=== PATIENT | female | born 1955 | race Caucasian/White ===

== ENCOUNTER → 2020-05-09 10:01 | Outpatient (CLI) | payer MEDICARE, SELFPAY ==
--- NOTE | ~2020-05-09 | MM_ITS ---
EXAMINATION: MM screening jared BI w koffi HISTORY: Screening mammogram TECHNIQUE: Craniocaudal and mediolateral oblique 3-D tomosynthesis images were obtained and synthetic 2-D images were generated. CAD analysis was submitted and interpreted. COMPARISON: , 09/07/2017, 09/03/2016 bilateral digital screening mammogram examinations BREAST PARENCHYMAL COMPOSITION: There are scattered areas of fibroglandular density. FINDINGS: There is no evidence of suspicious mass, calcification, or architectural distortion to sugg est malignancy in either breast. There has been no suspicious interval change. IMPRESSION: 1. No mammographic evidence of malignancy. 2. Recommend routine screening mammography in one year. BI-RADS Category 1: Negative Reviewed, dictated and finalized at location A.
--- NOTE | ~2020-05-09 | DEXA_ITS ---
Bone Density Report Name: Kiara Guzman Age: 64 Sex: Female Ethnicity: White Date of : 1955 Indication: postmenopausal; screening for osteoporosis; hysterectomy; Referring Provider: ARIANE WILSON Study: Bone densitometry was performed. Exam Date: May 09, 2020 Accession number: [id number] Bone Density: Region BMD T-score Z-score Classification AP Spine (L1-L4) 1.421 3.4 5.2 Normal Femoral Neck (Left) 1.237 3.5 5.0 Normal Total Hip (Left) 1.476 4.4 5.6 Normal Femoral Neck (Right) 1.262 3.7 5.3 Normal Total Hip (Right) 1.422 3.9 5.2 Normal Total Hip Mean 1.449 4.2 5.4 Normal World Health Organization criteria for BMD impression classify patients as: Normal (T-score at or above -1.0), Osteopenia (T-score between -1.0 and -2.5), or Osteoporosis (T-score at or below -2.5). 10-year Fracture Risk: FRAX not reported because: All T-scores for Spine Total, Hip Total, Femoral Neck at or above -1.0 Treated for osteoporosis Clinical Information Provided by Patient: Is being treated for osteoporosis Has used the following medications: HRT (i.e. estrogen/hormone therapy), Vitamin D, Calcium Has the following medical conditions: Hysterectomy Patient maximum height was 66 Menopause Age: 46 No regular weight bearing exercise Drinks caffeinated beverages Onset of menses at age 11 Number of children 2 Impression: The patient has normal bone mass. Discussion: It is important to ask patients whether they are taking their medications and to encourage continued and appropriate compliance with their osteoporosis therapies to reduce fracture risk. It is also important to review their risk factors and encourage appropriate calcium and vitamin D intakes, exercise, fall prevention and other lifestyle measures. Follow-Up: Consider a repeat BMD and Vertebral Fracture Assessment (VFA) exam in 2 years or sooner if medically necessary, to reassess this patient's status. Reported by: [facility] on 05/09/2020 10:30:00 AM. Reviewed, dictated and finalized at location AJamilah CHONG
== END ==
PROVIDERS: PCP Family Medicine Adolescent Medicine; Visit Provider Family Medicine Adolescent Medicine
DX: Z12.31 Encounter for screening mammogram for malignant neoplasm of breast (principal); Z78.0 Asymptomatic menopausal state
CPT/HCPCS: 77063; 77067; 77080

== ENCOUNTER 2020-12-21 07:52 | Emergency (ER) | payer MEDICARE, SELFPAY ==
[2020-12-21] VITALS (18 sets, daily range): BP systolic 130–214; BP diastolic 74–97; PULSE 74–90; RESP 10–20; TEMP 36.7; O2SAT 94–98
--- NOTE | ~2020-12-21 | XR_ITS ---
EXAMINATION: XR chest 2V EXAM DATE: 12/21/2020 08:14 INDICATION: Left-sided chest pain since December 08. History hypertension and asthma. TECHNIQUE: Frontal and lateral projections of the chest obtained and reviewed. There is no prior crystal dy for comparison. FINDINGS: The lungs are clear. There are no pleural effusions. The cardiomediastinal silhouette is within normal limits. There is no pneumothorax suspected. The bones and soft tissues are unremarkab le. IMPRESSION: No acute cardiopulmonary findings. Reviewed, dictated and finalized at location A.
--- NOTE | 2020-12-21 07:57 | ECG_ITS ---
Measurements Intervals [place] Rate: 93 P: 57 KS: 177 QRS: -6 QRSD: 85 T: 45 QT: 330 QTc: 412 Interpretive Statements SINUS RHYTHM POSSIBLE LEFT ATRIAL ENLARGEMENT DELAYED PRECORDIAL R/S TRANSITION BORDERLINE R WAVE PROGRESSION, ANTERIOR LEADS BASELINE WANDER- III, AVF BORDERLINE ECG Electronically Signed On 12-21-2020 11:57:14 CDT by Amish Montague D.O.
[2020-12-21 08:18] LABS: Basophils Percent Auto 0.5 % (0.2-1.2); Eosinophils Absolute Auto 0.2 K/mm3 (0-0.3); Eosinophils Percent Auto 2.5 % (0-4.4); Hematocrit 39.9 % (37.0-47.0); Hemoglobin 13.3 g/dL (12.0-15.0); Immature Granulocyte Absolute 0.03 K/mm3 (0.00-0.031); Immature Granulocyte Percent A 0.4 % (0-0.5); Lymphocytes Absolute Auto 2.66 K/mm3 (0.9-3.2); Lymphocytes Percent Auto 33.9 % (18.3-44.2); Mean Corpuscular HGB Conc 33.3 g/dl (32-36); Mean Corpuscular Hemoglobin 30.3 pg (26-34); Mean Corpuscular Volume 90.9 fl (80-100); Mean Platelet Volume 10.3 fl (7.4-10.4); Monocytes Absolute Auto 0.7 K/mm3 (0.1-0.6); Monocytes Percent Auto 8.9 % (2.6-8.5); Neutrophils Absolute Auto 4.2 K/mm3 (1.3-6.7); Neutrophils Percent Auto 53.8 % (45.5-73.1); Platelet Count Result 270 k/mm3 (150-375); Red Blood Count 4.39 M/mm3 (4.2-5.4); Red Cell Distribution Width 12.4 % (11.5-14.5); White Blood Count 7.9 K/mm3 (4.5-10.0)
[2020-12-21] MEDS: ASPIRIN 81 MG CHEWABLE TABLET 324 MG PO (08:23)
[2020-12-21 08:25] LABS: Anion Gap 8 mmol/L (8-16); Blood Urea Nitrogen 17 mg/dL (7-17); Calcium 9.7 mg/dL (8.4-10.2); Carbon Dioxide 28 mmol/L (22-30); Chloride 100 mmol/L (98-107); Estimated CRCL calculation 78 ml/min; Estimated Glomerular Filt Rate > 60; Glucose 225 mg/dL (65-105); Potassium 4.5 mmol/L (3.4-5.0); Sodium 136 mmol/L (137-145)
[2020-12-21 08:28] LABS: INR 0.9; Prothrombin Time 12.3 Seconds (11.1-14.7)
[2020-12-21 08:37] LABS: Troponin I < 0.012 ng/mL (0.000-0.034)
[2020-12-21 08:49] LABS: Alanine Aminotransferase 15 U/L (4-35); Albumin Level 4.2 g/dL (3.5-5.1); Alkaline Phosphatase 98 U/L (38-126); Aspartate Amino Transferase 25 U/L (14-36); Bilirubin,Total 0.3 mg/dL (0.2-1.3); Lipase 140 U/L (23-300)
[2020-12-21] MEDS: KETOROLAC 30 MG/ML VIAL (*BKC) IV PUSH (08:53)
--- NOTE | 2020-12-21 10:20 | ED.GENADULT ---
HPI - General Adult General Chief complaint: Chest Pain Stated complaint: chest pain Time Seen by Provider: 12/21/20 07:53 History of Present Illness HPI narrative: Patient is a 65-year-old female who presents ER with concerns for chest discomfort. Reports 2 weeks ago she began having discomfort in between her shoulder blades. It felt like it was pulling her chest towards the back. She was then developed epigastric and bilateral chest wall discomfort. She reports it is worse in the mornings and gets better around noon. She also notices when she drinks cold water it helps alleviate some of her discomfort. Denies nausea/vomiting/shortness of breath. No previous history of [place]. Patient reports she has known hypertension/diabetes and that she does not take medications for. She is scheduled to follow-up with her PCP next week. Related Data Home Medications Medication Instructions Recorded Confirmed citalopram mg 12/21/20 estradiol mg 12/21/20 lisinopril 12/21/20 Allergies Allergy/AdvReac Type Severity Reaction Status Date / Time No Known Allergies Allergy Verified 12/21/20 08:16 Review of Systems Review of Systems: All systems reviewed & are unremarkable except as noted in HPI and below Constitutional: Constitutional: Denies chills, Denies fever(s) and Denies weakness ENT: Denies nasal congestion and Denies sore throat Cardiovascular: Cardiovascular: Reports chest pain, Denies rapid heart rate and Denies radiating jaw, neck or arm pain Gastrointestinal: Gastrointestinal: Denies abdominal pain, Denies nausea and Denies vomiting Musculoskeletal: Musculoskeletal: Reports back pain, Denies arthralgias, Denies joint swelling and Denies muscle cramps PMFSH Past Medical History Medical History (Updated 12/21/20 @ 10:26 by Prince Jones MD) Diabetes Hypertension Surgical History Surgical History (Updated 12/21/20 @ 10:22 by Prince Jnoes MD) No pertinent past surgical history Social History Social History (Updated 12/21/20 @ 10:23 by Prince Jones MD) Social History: Only social smoking in the past. Smoking status: Never smoker Exam Narrative: Exam Narrative: GENERAL: Well-appearing, well-nourished, and in no acute distress. HEAD: Normocephalic, atraumatic. EYES: PERRL and EOMI CHEST: Clear to auscultation. No respiratory distress. HEART: Regular rate and rhythm. Normal peripheral pulses. ABDOMEN: Soft, nontender, nondistended. BACK: Very tender to palpation around the left shoulder blade. No midline tenderness of T/L-spine EXTREMITIES: Normal range of motion. No edema. SKIN: Warm, dry, no rash. NEURO: Alert and oriented x3. PSYCH: Normal mood and affect. Course Course Emergency Course: Symptoms sound like there is a combination of GI and musculoskeletal discomfort. Will start on a PPI and give a lower dose of NSAIDs. Recommend follow-up with your PCP as previously scheduled. Vital Signs Vital signs: Vital Signs Temperature 98.1 F 12/21/20 08:10 Pulse Rate 89 12/21/20 08:10 Respiratory Rate 16 12/21/20 08:10 Blood Pressure 214/97 H 12/21/20 08:10 Pulse Oximetry 97 12/21/20 08:10 Temperature 98.1 F 12/21/20 08:10 Pulse Rate 74 12/21/20 11:00 Respiratory Rate 12 12/21/20 11:00 Blood Pressure 150/82 H 12/21/20 10:31 Pulse Oximetry 96 12/21/20 11:00 Medical Decision Making Vital Signs Vital Signs: Vital Signs Temperature 98.1 F 12/21/20 08:10 Pulse Rate 89 12/21/20 08:10 Respiratory Rate 16 12/21/20 08:10 Blood Pressure 214/97 H 12/21/20 08:10 Pulse Oximetry 97 12/21/20 08:10 Temperature 98.1 F 12/21/20 08:10 Pulse Rate 74 12/21/20 11:00 Respiratory Rate 12 12/21/20 11:00 Blood Pressure 150/82 H 12/21/20 10:31 Pulse Oximetry 96 12/21/20 11:00 Lab Data Result diagrams: 12/21/20 08:05 12/21/20 08:05 Labs: Lab Results 12/21/20 12/21/20 12/21/20 Range/Units 08:05
[2020-12-21 11:13] LABS: Troponin I < 0.012 ng/mL (0.000-0.034)
== END 2020-12-21 12:03 | disposition home or self-care (01) ==
PROVIDERS: Emergency Provider Emergency Medicine; PCP Family Medicine Adolescent Medicine
DX: R07.89 Other chest pain (principal); E11.9 Type 2 diabetes mellitus without complications; I10 Essential (primary) hypertension; Z87.891 Personal history of nicotine dependence
CPT/HCPCS: 36415; 71046; 80048; 80076; 83690; 84484; 85025; 85610; 85730; 93005; 96374; 99284; A9270; J1885

== ENCOUNTER → 2020-12-27 13:18 | Outpatient (CLI) | payer MEDICARE, SELFPAY ==
--- NOTE | ~2020-12-27 | CT_ITS ---
EXAMINATION: CTA chest PE protocol DATE: 12/27/2020 13:54 CDT INDICATION: Pleuritic chest pain TECHNIQUE: Computed tomographic angiography (CTA) of the chest was performed with 100 mL Omnipaque-35 0 intravenous contrast. The dose-length product was 660.84 mGy-cm. Maximum intensity projection 3D-re constructions of the aorta and other arteries were constructed by the technologist on a separate work station. Automated exposure control and iterative reconstruction technique were employed. COMPARISON: None. FINDINGS: Study is technically adequate without evidence for pulmonary embolism. Evaluation of periph eral pulmonary arteries limited by motion artifact. No significant pleural or pericardial effusion. B orderline heart size. No thoracic lymphadenopathy. No endobronchial lesions. There is dependent atele ctasis. No focal airspace consolidation. No pneumothorax. The upper abdomen is unremarkable. Moderate thoracic lymphadenopathy. IMPRESSION: 1. No large central pulmonary embolism. Evaluation of peripheral arteries limited by motion. 2: No acute cardiopulmonary disease. Reviewed, dictated and finalized at location A. IMPRESSION: 1. No large central pulmonary embolism. Evaluation of peripheral arteries limit ed by motion. 2: No acute cardiopulmonary disease.
[2020-12-27 13:37] LABS: Estimated Glomerular Filt Rate > 60
== END ==
PROVIDERS: PCP Family Medicine Adolescent Medicine; Visit Provider Family Medicine Adolescent Medicine
DX: R07.89 Other chest pain (principal)
CPT/HCPCS: 71275; Q9967

== ENCOUNTER 2021-02-04 08:14 | Outpatient (CLI) | payer MEDICARE, SELFPAY ==
--- NOTE | ~2021-02-04 | US_ITS ---
EXAMINATION: US art doppler w press LE BI DATE: 02/04/2021 09:11 INDICATION: Lower limb pain. Peripheral arterial occlusive disease. TECHNIQUE: Segmental pressures and plethysmographic and Doppler waveforms of the brachial and lower e xtremity arteries were obtained. COMPARISON: None. FINDINGS: Right and left brachial artery pressures of 155 mm Hg and 165 mm Hg, respectively, are concordant (no rmal difference <= 30 mmHg). The right and left high-thigh pressure indices are unable to be obtained due to inability to occlude the vessels above the ankles. The right ankle-brachial index (JUJU) is 1.19 (normal >= 0.9-1). The right great toe-brachial index (T BI) is 0.67 (normal >= 0.6-0.8). Arterial waveforms are triphasic at the right common femoral artery and biphasic in the more distal arteries with brisk systolic upstrokes throughout. The left JUJU is 0.92 based upon the pressure in the left dorsalis pedis artery but may be underestima moises due to inability to occlude the left posterior tibial artery. The left TBI is 1.05. Arterial wave forms are triphasic at the left common femoral, superficial femoral and popliteal arteries and biphas ic in the left posterior tibial and dorsalis pedis arteries with brisk systolic upstrokes throughout. IMPRESSION: 1. No significant arterial occlusive disease to either lower limb with normal bilateral TBI's, normal right JUJU and borderline normal left JUJU, the latter which may be underestimated due to inability to occlude the left posterior tibial artery. Reviewed, dictated and finalized at location A. IMPRESSION: 1. No significant arterial occlusive disease to either lower limb with normal b ilateral TBI's, normal right JUJU and borderline normal left JUJU, the latter whi ch may be underestimated due to inability to occlude the left posterior tibial artery.
== END 2021-02-04 08:15 | disposition home or self-care (01) ==
PROVIDERS: PCP Family Medicine Adolescent Medicine; Visit Provider Podiatrist Foot & Ankle Surgery
DX: I70.221 Atherosclerosis of native arteries of extremities with rest pain, right leg (principal)
CPT/HCPCS: 93923

== ENCOUNTER → 2021-03-06 09:18 | Outpatient (CLI) | payer MEDICARE, SELFPAY ==
--- NOTE | ~2021-03-06 | US_ITS ---
EXAMINATION: US retroperitoneal comp EXAM DATE: 03/06/2021 09:50 INDICATION: Personal history of malignant neoplasm of bladder. TECHNIQUE: Multiple grayscale and Doppler images of the kidneys were obtained (by a technologist who performed the scan) and subsequently reviewed. There is no prior study for comparison. FINDINGS: Right kidney: There is normal contour and echogenicity. It measures 8.7 x 5.4 x 5.4 centimeters. Th ere are no focal renal lesions identified. There is no hydronephrosis. Left kidney: There is normal contour and echogenicity. It measures 9.3 x 5.5 x 5.9 centimeters. The re are no focal renal lesions identified. There is no hydronephrosis. Bladder unremarkable. IMPRESSION: 1. Sonographically unremarkable kidneys. Reviewed, dictated and finalized at location A.
== END ==
PROVIDERS: PCP Family Medicine Adolescent Medicine; Visit Provider Urology
DX: Z85.51 Personal history of malignant neoplasm of bladder (principal)
CPT/HCPCS: 76770

== ENCOUNTER → 2021-07-21 13:16 | Outpatient (CLI) | payer MEDICARE, SELFPAY ==
--- NOTE | ~2021-07-21 | MM_ITS ---
EXAMINATION: MM screening jared BI w koffi HISTORY: Screening TECHNIQUE: Craniocaudal and mediolateral oblique 3-D tomosynthesis images were obtained and synthetic 2-D images were generated. CAD analysis was submitted and interpreted. COMPARISON: Comparison to multiple prior studies sequentially, with oldest reviewed study dated 12/2015. BREAST PARENCHYMAL COMPOSITION: Breast composed of scattered areas of fibroglandular density FINDINGS: There is no evidence of suspicious mass, calcification, or architectural distortion to sugg est malignancy in either breast. There has been no suspicious interval change. IMPRESSION: 1. No mammographic evidence of malignancy. 2. Recommend routine screening mammography in one year. BI-RADS Category 1: Negative Reviewed, dictated and finalized at location A. PING AND RECEIVING
== END ==
PROVIDERS: PCP Family Medicine Adolescent Medicine; Visit Provider Family Medicine Adolescent Medicine
DX: Z12.31 Encounter for screening mammogram for malignant neoplasm of breast (principal)
CPT/HCPCS: 77063; 77067

== ENCOUNTER → 2022-04-02 15:11 | Outpatient (CLI) | payer MEDICARE, SELFPAY ==
--- NOTE | ~2022-04-02 | XR_ITS ---
EXAMINATION: XR chest 2V 04/02/2022 16:45 INDICATION: History of bladder cancer PROCEDURE: 2 view chest COMPARISON: 12/21/2020 FINDINGS: The lungs are clear. The cardiomediastinal silhouette is within normal limits. There are no pleural effusions. There is no pneumothorax suspected. IMPRESSION: 1: NO ACUTE CARDIOPULMONARY DISEASE. Reviewed, dictated and finalized at location A.
--- NOTE | ~2022-04-02 | XR_ITS ---
XR hand RT min 3V 04/02/2022 16:04 Indication: Hand pain Procedure: 3 views right hand Comparison: No prior studies for comparison. Findings: There is polyarticular osteoarthritis of the hand and wrist, most advanced in the second-fi fth distal interphalangeal joints. There are also degenerative changes of the triscaphe, first carpal metacarpal and metacarpal phalangeal joints. There are lesser degenerative changes in the proximal i nterphalangeal and first interphalangeal joint. Impression: 1: Moderate-severe polyarticular osteoarthritis. Reviewed, dictated and finalized at location A. Impression: 1: Moderate-severe polyarticular osteoarthritis.
--- NOTE | ~2022-04-02 | XR_ITS ---
XR hand LT min 3V 04/02/2022 16:04 Indication: Left hand pain Procedure: 3 views left hand Comparison: No prior studies for comparison. Findings: There is polyarticular osteoarthritis of the hand and wrist, most advanced in the second-fi fth distal interphalangeal joints and the fourth and fifth proximal interphalangeal joints.. There ar e also degenerative changes of the triscaphe, first carpal metacarpal and metacarpal phalangeal joint s. There are also mild-moderate degenerative changes of the first interphalangeal, second and third p roximal interphalangeal joints. No fracture or traumatic malalignment. No foreign bodies. Impression: 1: Moderate-severe polyarticular osteoarthritis. Reviewed, dictated and finalized at location A. Impression: 1: Moderate-severe polyarticular osteoarthritis.
--- NOTE | ~2022-04-02 | US_ITS ---
US retroperitoneal comp 04/02/2022 15:47 Procedure: Realtime transabdominal ultrasound of the kidneys and bladder. Indication: History of bladder cancer Comparison: 03/06/2021 Findings: Renal echotexture is normal bilaterally without hydronephrosis, contour deforming mass or r enal calculus. The right kidney measures 10.2 cm and left kidney measures 10.5 cm. Bladder within no rmal limits. Impression: 1: Unremarkable renal ultrasound. No stones, masses or hydronephrosis. Reviewed, dictated and finalized at location A. Impression: 1: Unremarkable renal ultrasound. No stones, masses or hydronephrosis.
== END ==
PROVIDERS: PCP Family Medicine Adolescent Medicine; Visit Provider Urology
DX: M79.641 Pain in right hand (principal); M79.642 Pain in left hand; Z85.51 Personal history of malignant neoplasm of bladder; M19.042 Primary osteoarthritis, left hand; M19.041 Primary osteoarthritis, right hand
CPT/HCPCS: 71046; 73130; 76770

== ENCOUNTER → 2022-07-09 16:40 | Outpatient (CLI) | payer MEDICARE, SELFPAY ==
--- NOTE | ~2022-07-09 | XR_ITS ---
EXAMINATION: XR knee RT 2V DATE: 07/09/2022 16:54 INDICATION: Right knee pain. TECHNIQUE: 2 views of right knee standing were obtained. COMPARISON: None. FINDINGS: Bone alignment is normal. No fracture. There is severe osteoarthritis of medial compartment and mild osteoarthritis of lateral and patellofemoral compartments. There is a small knee joint effu vance. IMPRESSION: 1. Severe right knee osteoarthritis. 2. Small right knee joint effusion. Reviewed, dictated and finalized at location A. TRIMMER
== END ==
PROVIDERS: PCP Physician Assistant; Visit Provider Physician Assistant
DX: M25.561 Pain in right knee (principal); M17.11 Unilateral primary osteoarthritis, right knee; M25.461 Effusion, right knee
CPT/HCPCS: 73560

== ENCOUNTER 2022-08-28 02:06 | Day surgery (SDC) | payer MEDICARE, SELFPAY ==
[2022-07-21 14:08] VITALS: BMI 31.6
--- NOTE | 2022-08-28 09:23 | P.PNAN_ITS ---
Anes - Initial Pre Proc Eval Procedure: Operation Date: 08/28/22 10:00 Proposed Procedures p Screening Colonoscopy - Dax Lugo MD Date/Time: 08/28/22 09:23 Surgeon: Dax Lugo MD Pre Op Diagnosis: neoplasm screening Patient Data Age: 66 Gender: F Height: 1.65 m Weight: 86.3 kg Allergies Allergy/AdvReac Type Severity Reaction Status Date / Time iohexol Allergy Anaphylaxis Verified 08/14/22 11:54 [From contrast - CT, X-RAY] Home Medications Medication Instructions Recorded Confirmed Type rosuvastatin 10 mg tablet 10 mg PO DAILY #90 tabs 03/16/22 08/14/22 Rx alprazolam 0.5 mg tablet 0.5 mg PO BID PRN anxiety #40 tabs 04/27/22 08/14/22 Rx celecoxib 200 mg capsule (Celebrex) 200 mg PO DAILY #30 caps 07/08/22 08/14/22 Rx sodium,potassium,mag sulfates 17.5 See Rx Instructions PO .COMPLEX 07/10/22 08/14/22 Rx gram-3.13 gram-1.6 gram oral soln #354 mL (Suprep Bowel Prep Kit) citalopram 40 mg tablet 40 mg PO DAILY #90 tabs 08/02/22 08/14/22 Rx lisinopril 30 mg tablet 30 mg PO DAILY #90 tabs 08/25/22 Rx Patient hx anesthesia problems: none Family hx anesthesia problems: none Results Review: All pre-operative results and documents have been reviewed as part of the pre- operative evaluation. ON LICENSE OF [facility] Past Medical History Medical History Diabetes Hx of cervical cancer Hypertension Surgical History Surgical History Hx of hysterectomy (~09/2001) No pertinent past surgical history (~1990) Family History Family History Grandparent Depression Diabetes mellitus Sibling Depression Hypertension Mother Hypertension Skin cancer Obesity Leukemia Sibling Hypertension Father Obesity Skin cancer Liver cancer Lung cancer Other Asthma Social History Social History Social History: Only social smoking in the past. Smoking status: Former smoker Second hand tobacco smoke exposure: No Alcohol intake: never Substance use: never Substance use type: does not use Living arrangements: with family Occupation/Education: retired Gender identity (if verbalized by the patient): Female Sexual Orientation (if Verbalized by the Patient): Straight or Heterosexual Spiritual care concerns: No Agree to blood products: Yes Anes - Eval Final PreProcedure Day of Procedure 08/28/22 09:23 Patient weight: obese Heart: regular rate and rhythm Lungs: clear to auscultation Airway: Mallampati scale class II Neurological: alert and oriented Last oral intake: >/= 8 hours ASA classification: III Emergent: no Anesthetic plan: proceed Anesthesia type and monitoring: general GIVS and standard monitoring Results Review: All pre-operative results and documents have been reviewed as part of the pre- operative evaluation. Informed Consent: The patient's anesthetic plan and its attendant risks and benefits were discussed with the patient/family/POA. Questions were solicited and answers provided to the satisfaction of the patient/family/POA.
[2022-08-28 09:25] LABS: Glucose Point of Care 163 mg/dl (65-105)
[2022-08-28 09:28] VITALS: BP 163/101; PULSE 113; RESP 20; TEMP 36.2; O2SAT 97; BMI 33.3
[2022-08-28] MEDS: LACTATED RINGERS 1,000 ML 150 ML IV CONT (09:39)
--- NOTE | 2022-08-28 09:43 | PM.HPGS ---
History of Present Illness History of Present Illness Consent: Risks, benefits, and alternatives have been discussed and questions answered. Patient agrees to proceed with procedure. Chief complaint: neoplasm screening Narrative: Kiara Guzman is a 66 year old female Presents for screening colonoscopy. Patient's current weight appetite bowel movements are normal. Patient denies abdominal pain. She has had no bleeding. Family history noncontributory. Patient recently started on metformin is noticed subsequent loose stools. She has never had bleeding. She presents today for colonoscopy. Review of Systems Review of Systems: Review of systems noncontributory. [facility] Past Medical History Medical History Diabetes Hx of cervical cancer Hypertension Surgical History Surgical History Hx of hysterectomy (~09/2001) No pertinent past surgical history (~1990) Family History Family History Grandparent Depression Diabetes mellitus Sibling Depression Hypertension Mother Hypertension Skin cancer Obesity Leukemia Sibling Hypertension Father Obesity Skin cancer Liver cancer Lung cancer Other Asthma Social History Social History Social History: Only social smoking in the past. Smoking status: Former smoker Second hand tobacco smoke exposure: No Alcohol intake: never Substance use: never Substance use type: does not use Living arrangements: with family Occupation/Education: retired Gender identity (if verbalized by the patient): Female Sexual Orientation (if Verbalized by the Patient): Straight or Heterosexual Spiritual care concerns: No Agree to blood products: Yes Meds Home Medications and Allergies Home Medications Medication Instructions Recorded Confirmed Type rosuvastatin 10 mg tablet 10 mg PO DAILY #90 tabs 03/16/22 08/14/22 Rx alprazolam 0.5 mg tablet 0.5 mg PO BID PRN anxiety #40 tabs 04/27/22 08/14/22 Rx celecoxib 200 mg capsule (Celebrex) 200 mg PO DAILY #30 caps 07/08/22 08/14/22 Rx citalopram 40 mg tablet 40 mg PO DAILY #90 tabs 08/02/22 08/14/22 Rx lisinopril 30 mg tablet 30 mg PO DAILY #90 tabs 08/25/22 08/28/22 Rx Allergies Allergy/AdvReac Type Severity Reaction Status Date / Time iohexol Allergy Anaphylaxis Verified 08/14/22 11:54 [From contrast - CT, X-RAY] Vital Signs Vital Signs - 24 hr 08/28/22 09:28 Temperature 97.1 F L Pulse Rate 113 H Respiratory Rate 20 Blood Pressure 163/101 H Pulse Oximetry 97 Oxygen Delivery Room Air Exam Narrative: Physical exam reveals patient to be alert. Vital signs stable. HEENT exam is unremarkable. Patient is anicteric. Lungs are clear to auscultation and percussion. Heart is without murmur or extra sounds. Abdomen bowel sounds are present soft nontender with no organomegaly. Digital external rectal exam is normal. Assessment and Plan Assessment and plan (1) Encounter for screening colonoscopy: Code(s): Z12.11 - Encounter for screening for malignant neoplasm of colon Status: Acute Assessment and Plan: Patient presents for screening colonoscopy. She appears to be at average risk for colon polyps. Further recommendations may be given after endoscopy. Fiber supplements are encouraged because of occasional loose stools.
[2022-08-28 10:57] VITALS: BP 152/95; PULSE 77; RESP 22; O2SAT 96
[2022-08-28 11:07] VITALS: BP 147/78; PULSE 76; RESP 18; O2SAT 96
[2022-08-28 11:17] VITALS: BP 156/90; PULSE 76; RESP 20; O2SAT 98
== END 2022-08-28 11:31 | disposition home or self-care (01) ==
PROVIDERS: PCP Family Medicine Adolescent Medicine; Visit Provider Internal Medicine Gastroenterology
PROC: 0DJD8ZZ Inspection of Lower Intestinal Tract, Via Natural or Artificial Opening Endoscopic (ICD-10-PCS; CPT 45378; principal; 2022-08-28 10:00)
DX: Z12.11 Encounter for screening for malignant neoplasm of colon (principal); K64.8 Other hemorrhoids; I10 Essential (primary) hypertension; E11.9 Type 2 diabetes mellitus without complications; Z85.41 Personal history of malignant neoplasm of cervix uteri
CPT/HCPCS: G0121; 82948; J2704; J7120

== ENCOUNTER → 2023-05-24 10:44 | Outpatient (CLI) | payer MEDICARE, SELFPAY ==
--- NOTE | ~2023-05-24 | MM_ITS ---
EXAMINATION: MM screening [facility] BI w koffi HISTORY: Screening mammogram TECHNIQUE: Craniocaudal and mediolateral oblique 3-D tomosynthesis images were obtained and synthetic 2-D images were generated. CAD analysis was submitted and interpreted. COMPARISON: 07/21/2021, 05/09/2020, 10/04/2018 BREAST PARENCHYMAL COMPOSITION: There are scattered areas of fibroglandular density. FINDINGS: No suspicious mass, calcification, or architectural distortion are identified in either jh ast to suggest malignancy. There has been no suspicious interval change. IMPRESSION: 1. No mammographic evidence of malignancy. 2. Recommend routine screening mammography in one year. BI-RADS Category 1: Negative Reviewed, dictated and finalized at location A. [employer]
== END ==
PROVIDERS: PCP Family Medicine Adolescent Medicine; Visit Provider Family Medicine Adolescent Medicine
DX: Z12.31 Encounter for screening mammogram for malignant neoplasm of breast (principal)
CPT/HCPCS: 77063; 77067

== ENCOUNTER 2023-06-08 11:55 | Outpatient (CLI) | payer MEDICARE, SELFPAY ==
--- NOTE | ~2023-06-08 | XR_ITS ---
. XR chest 2V 06/08/2023 12:23 Indication: History of bladder cancer. Procedure: 2 view chest Comparison: 04/02/2022 Findings: Heart size normal. No focal air space disease, pulmonary edema, pleural effusion or suspect ed pneumothorax. Impression: 1: No acute cardiopulmonary disease. Reviewed, dictated and finalized at location L. R HAND Impression: 1: No acute cardiopulmonary disease.
== END 2023-06-08 11:56 | disposition home or self-care (01) ==
PROVIDERS: PCP Family Medicine Adolescent Medicine; Visit Provider Urology
DX: Z85.51 Personal history of malignant neoplasm of bladder (principal)
CPT/HCPCS: 71046

== ENCOUNTER 2024-03-06 12:34 | Outpatient (CLI) | payer MEDICARE, SELFPAY ==
--- NOTE | ~2024-03-06 | DEXA_ITS ---
Bone Density Report Name: CARA LORENZANA Age: 68 Sex: Female Ethnicity: White Date of : 1955 Indication: postmenopausal; screening for osteoporosis; height loss; history of glucocorticoids; cancer; asthma or emphysema; hysterectomy; Referring Provider: ARIANE WILSON Study: Bone densitometry was performed. Exam Date: March 06, 2024 Accession number: [id number] Bone Density: Region BMD T-score Z-score Classification AP Spine(L1-L4) 1.368 2.9 5.0 Normal Femoral Neck (Left) 1.200 3.2 4.9 Normal Total Hip (Left) 1.425 4.0 5.4 Normal Femoral Neck (Right) 1.231 3.4 5.2 Normal Total Hip (Right) 1.371 3.5 5.0 Normal Total Hip Mean 1.398 3.8 5.2 Normal World Health Organization criteria for BMD impression classify patients as: Normal (T-score at or above -1.0), Osteopenia (T-score between -1.0 and -2.5), or Osteoporosis (T-score at or below -2.5). 10-year Fracture Risk: FRAX not reported because: All T-scores for Spine Total, Hip Total, Femoral Neck at or above -1.0 Clinical Information Provided by Patient: Has taken Glucocorticoids Has used the following medications: Vitamin D Has the following medical conditions: Asthma or Emphysema, Cancer, Hysterectomy Patient maximum height was 66.0 No regular weight bearing exercise Drinks caffeinated beverages Onset of menses at age 11 Number of children 2 Impression: The patient has normal bone mass. The patient has risk factors, including: history of glucocorticoid therapy. Discussion: LOW RISK OF FRACTURE; BONE DENSITY IS WELL ABOVE THE MINIMUM DESIRABLE LEVEL AND ABOVE AVERAGE FOR AGE AND SEX AT ALL SKELETAL SITES TESTED. This person's bone density is above expected limits for age and sex. This is rarely clinically significant, but should be pursued if there are significant musculoskeletal complaints. The patient should follow a healthful lifestyle (good nutrition with adequate calcium and vitamin D, and appropriate weight-bearing exercise). Follow-Up: Consider repeating this study in 5 years or sooner if there is some new clinical indication. Reported by: IAM on 03/06/2024 1:05:00 PM. Reviewed, dictated and finalized at location A. CASTILLO
== END 2024-03-06 12:35 | disposition home or self-care (01) ==
LOC: ANHIMG 12:35
PROVIDERS: PCP Family Medicine Adolescent Medicine; Visit Provider Family Medicine Adolescent Medicine
DX: Z13.820 Encounter for screening for osteoporosis (principal); Z78.0 Asymptomatic menopausal state
CPT/HCPCS: 77080

== ENCOUNTER 2024-06-19 09:59 | Outpatient (CLI) | payer MEDICARE, SELFPAY ==
--- NOTE | ~2024-06-19 | XR_ITS ---
XR chest 2V Ordering provider: Andrea Ashby MD History: 68 years Female with . Hx of bladder CA . Comparison: June 08, 2023 FINDINGS: MEDIASTINUM: The cardiac silhouette is not enlarged. LUNGS: No infiltrates, effusions or pneumothorax. OTHER: No free air under the diaphragm. Degenerative changes of the spine. IMPRESSION: No acute cardiopulmonary pathology. Reviewed, dictated and finalized at location A. NSED CHEMICAL SPRAY TECHNICIAN
== END 2024-06-19 10:00 | disposition home or self-care (01) ==
PROVIDERS: PCP Family Medicine Adolescent Medicine; Visit Provider Urology
DX: Z85.51 Personal history of malignant neoplasm of bladder (principal)
CPT/HCPCS: 71046

== ENCOUNTER 2024-08-15 11:18 | Outpatient (CLI) | payer MEDICARE, SELFPAY ==
--- NOTE | ~2024-08-15 | MM_ITS ---
EXAMINATION: MM screening jared BI w koffi HISTORY: Screening TECHNIQUE: Craniocaudal and mediolateral oblique 3-D tomosynthesis images were obtained and synthetic 2-D images were generated. CAD analysis was submitted and interpreted. COMPARISON: Comparison to multiple prior studies sequentially, with oldest reviewed study dated 09/03. BREAST PARENCHYMAL COMPOSITION: Not dense: There are scattered areas of fibroglandular density. FINDINGS: There is no evidence of suspicious mass, calcification, or architectural distortion to sugg est malignancy in either breast. There has been no suspicious interval change. IMPRESSION: 1. No mammographic evidence of malignancy. 2. Recommend routine screening mammography in one year. BI-RADS Category 1: Negative Reviewed, dictated and finalized at location B. OL SUPERVISOR
== END 2024-08-15 11:19 | disposition home or self-care (01) ==
LOC: MICIMG 11:20
PROVIDERS: PCP Family Medicine Adolescent Medicine; Visit Provider Family Medicine Adolescent Medicine
DX: Z12.31 Encounter for screening mammogram for malignant neoplasm of breast (principal)
CPT/HCPCS: 77063; 77067

== ENCOUNTER 2025-07-09 13:28 | Outpatient (CLI) | payer MEDICARE, SELFPAY ==
--- NOTE | ~2025-07-09 | US_ITS ---
US retroperitoneal comp 07/09/2025 13:50 Procedure: Realtime transabdominal ultrasound of the kidneys and bladder. Indication: Back pain. Angiomyolipoma right kidney. Comparison: Ultrasound dated 04/02/2022 Findings: Renal echotexture is normal bilaterally without hydronephrosis, contour deforming mass or renal calculus. The right kidney measures 10.1 cm and left kidney measures 12.6 cm cm. Bladder within normal limits. Impression: 1: Unremarkable renal ultrasound. No stones, masses or hydronephrosis. Reviewed, dictated and finalized at location O. ER PURSE SEINE Impression: 1: Unremarkable renal ultrasound. No stones, masses or hydronephrosis.
== END 2025-07-09 13:29 | disposition home or self-care (01) ==
LOC: MICIMG 13:30
PROVIDERS: PCP Nurse Practitioner Family; Visit Provider Urology
DX: D17.71 Benign lipomatous neoplasm of kidney (principal)
CPT/HCPCS: 76770